=== PATIENT | female | born 1990 | race African-American/Black ===

== ENCOUNTER 2018-03-05 12:05 | Emergency (ER) | payer SELFPAY ==
[~2018-03-05] VITALS: Ht 170.2 cm; Wt 98.0 kg
[2018-03-05] MEDS ORDERED: BENZ100C PO (13:36)
[2018-03-05] MEDS ORDERED: SULF1TAB24 PO (13:36)
--- NOTE | 2018-03-05 13:38 | PHYS DOC ---
Past History Past Medical History: No Pertinent History Past Surgical History: Smoking: Non-smoker Alcohol Use: None Drug Use: None Adult General Chief Complaint Chief Complaint: chest pain with cough [facility] 27-year-old female patient states she has had cough for 3 weeks with intermittent episodes of sputum and nasal congestion. Patient states she has some cough this morning and today while she was at 45th pain in the epigastric area but moved to her chest and then to her back last about an hour and resolved at arrival to ER. Rated her pain 8/10 and denies any pain at time of evaluation. Patient denies fever and chills, shortness of breath, palpitation, nausea and vomiting, . Patient had sick contacts at home. Review of Systems Review of Systems Constitutional: Denies fever or chills [] Eyes: Denies change in visual acuity, redness, or eye pain [] HENT: Reports nasal congestion or sore throat Respiratory:Reports cough Cardiovascular: No additional information not addressed in HPI [] GI: Denies abdominal pain, nausea, vomiting, bloody stools or diarrhea [] : Denies dysuria or hematuria [] Musculoskeletal: Denies back pain or joint pain [] Integument: Denies rash or skin lesions [] Neurologic: Denies headache, focal weakness or sensory changes [] Endocrine: Denies polyuria or polydipsia [] All other systems were reviewed and found to be within normal limits, except as documented in this note. Allergies Allergies Allergies Coded Allergies Type Severity Reaction Last Updated Verified No Known Drug Allergies 08/04/16 No Physical Exam Physical Exam Constitutional: Well developed, well nourished, no acute distress, non-toxic appearance. [] HENT: Normocephalic, atraumatic, bilateral external ears normal, oropharynx moist, no oral exudates, nose normal. [] Eyes: PERRLA, EOMI, conjunctiva normal, no discharge. [] Neck: Normal range of motion, no tenderness, supple, no stridor. [] Cardiovascular:Heart rate regular rhythm, no murmur [] Lungs & Thorax: Bilateral breath sounds clear to auscultation [] Abdomen: Bowel sounds normal, soft, no tenderness, no masses, no pulsatile masses. [] Skin: Warm, dry, no erythema, no rash. [] Back: No tenderness, no CVA tenderness. [] Extremities: No tenderness, no cyanosis, no clubbing, ROM intact, no edema. [] Neurologic: Alert and oriented X 3, normal motor function, normal sensory function, no focal deficits noted. [] Psychologic: Anxious, judgement normal, mood normal. [] Current Patient Data Vital Signs Vital Signs Date Time Temp Pulse Resp B/P (MAP) Pulse Ox O2 Delivery O2 Flow Rate FiO2 03/05/18 12:21 98.6 84 18 100 Room Air EKG EKG [] Radiology/Procedures Radiology/Procedures [] Course & Med Decision Making Course & Med Decision Making discharge: I've spoken with the patient and/or caregivers. I've explained the patient's condition, diagnosis and treatment plan based on information available to me at this time. I've answered the patient's and/or caregivers questions and addressed any concerns. The patient and/or caregivers have a good understanding the patient's diagnosis, condition and treatment plan as can be expected at this point. Vital signs have been stabilized. The patient's condition is stable for discharge from the emergency department. The patient will pursue further outpatient evaluation with her primary care provider or other designated consulting physician as outlined in the discharge instructions. Patient and/or caregivers are agreeable to this plan of care and follow-up instructions have been explained in detail. The patient and/or caregivers have received these instructions in written format and expressed understanding of these discharge instructions. The patient and her caregivers are aware that if any significant change in condition or worsening of symptoms should prompt him to immediately return to this of the closest emergency department. If an emergent department is not readily available I would encourage him to call 911. José Miguel Disclaimer Dragon Disclaimer This electronic medical record was generated, in whole or in part, using a voice recognition dictation system. Departure Departure: Impression: Primary Impression: Upper respiratory infection Additional Impression: Musculoskeletal chest pain Disposition: HOME, SELF-CARE (At 1334) Condition: STABLE Referrals: PCP,NO (PCP) Patient Instructions: Musculoskeletal Pain, Upper Respiratory Infection, Adult Additional Instructions: Drink plenty of liquids Follow-up with your primary care physician in 3-5 days Return to ER if not getting better Scripts Sulfamethoxazole/Trimethoprim (BACTRIM DS TABLET) 1 Each Tablet 1 TAB PO BID, #14 TAB Prov: FÉLIX ESPINAL MD 5/3/18 Benzonatate (TESSALON PERLE) 100 Mg Capsule 1 CAP PO TID, #30 CAP Prov: FÉLIX ESPINAL MD 03/05/18 Problem Qualifiers FÉLIX ESPINAL MD March 05, 2018 13:38
[2018-03-05 13:58] VITALS: BP 132/84
== END 2018-03-05 16:10 | disposition home or self-care (01) ==
LOC: ER 14:50
DX: J06.9 Acute upper respiratory infection, unspecified (principal); R07.89 Other chest pain
CPT/HCPCS: 99283

== ENCOUNTER 2018-03-19 08:42 | Emergency (ER) | payer SELFPAY ==
[~2018-03-19] VITALS: Ht 149.9 cm; Wt 96.2 kg
[~2018-03-19 08:42] MED LIST: BENZ100C PO; SULF1TAB24 PO
[2018-03-19 08:54] VITALS: BP 149/89
--- NOTE | 2018-03-19 09:08 | PHYS DOC ---
Past History Past Medical History: Other Past Surgical History: Smoking: Non-smoker Alcohol Use: None Drug Use: None Adult General Chief Complaint Chief Complaint: SKIN PROBLEM HPI HPI 27-year-old female patient with multiple dental examination states she to right and new lipstick yesterday for a short time and then later on developed itching and rash in her face and trunk without swelling of her lips. Patient states she had more patchy rash and itching this morning with swelling of her lips and face and feeling itching in her throat without shortness of breath and cough. She took 3/4 Benadryl improvement of her condition. She denies fever and chills , nausea and vomiting, chest pain and palpitation. Review of Systems Review of Systems Constitutional: Denies fever or chills [] Eyes: Denies change in visual acuity, redness, or eye pain [] HENT: Denies nasal congestion or sore throat [] Respiratory: Denies cough or shortness of breath [] Cardiovascular: No additional information not addressed in HPI [] GI: Denies abdominal pain, nausea, vomiting, bloody stools or diarrhea [] : Denies dysuria or hematuria [] Musculoskeletal: Denies back pain or joint pain [] Integument: Reports rash and itching Neurologic: Denies headache, focal weakness or sensory changes [] Endocrine: Denies polyuria or polydipsia [] All other systems were reviewed and found to be within normal limits, except as documented in this note. Allergies Allergies Allergies Coded Allergies Type Severity Reaction Last Updated Verified acetaminophen Allergy Intermediate 03/05/18 Yes amoxicillin Allergy Intermediate 03/05/18 Yes morphine Allergy Intermediate 03/05/18 Yes penicillin G Allergy Intermediate 03/05/18 Yes propoxyphene Allergy Intermediate 03/05/18 Yes Physical Exam Physical Exam Constitutional: Well developed, well nourished, moderate distress, non-toxic appearance. [] HENT: Normocephalic, atraumatic, bilateral external ears normal, oropharynx moist, no oral exudates, nose normal, upper lip edema, no facial rash or edema. [] Eyes: PERRLA, EOMI, conjunctiva normal, no discharge. [] Neck: Normal range of motion, no tenderness, supple, no stridor. [] Cardiovascular:Heart rate regular rhythm, no murmur [] Lungs & Thorax: Bilateral breath sounds clear to auscultation [] Abdomen: Bowel sounds normal, soft, no tenderness, no masses, no pulsatile masses. [] Skin: Warm, dry, no erythema, few area of patchy rash in upper back and abdominal wall[] Back: No tenderness, no CVA tenderness. [] Extremities: No tenderness, no cyanosis, no clubbing, ROM intact, no edema. [] Neurologic: Alert and oriented X 3, normal motor function, normal sensory function, no focal deficits noted. [] Psychologic: Affect normal, judgement normal, mood normal. [] Current Patient Data Vital Signs Vital Signs Date Time Temp Pulse Resp B/P (MAP) Pulse Ox O2 Delivery O2 Flow Rate FiO2 03/19/18 08:54 98.1 120 20 98 Room Air EKG EKG [] Radiology/Procedures Radiology/Procedures [] Course & Med Decision Making Course & Med Decision Making Evaluation of patient in ER showed 27-year-old female patient with rash after using a new makeup. Patient treated with Solu-Medrol and Benadryl and Pepcid in ER and felt better. Plan to discharge patient home with diagnose of allergic rash and prescription of drug dose pack and Pepcid and [id number] Benadryl. Dragon Disclaimer Dragon Disclaimer This electronic medical record was generated, in whole or in part, using a voice recognition dictation system. Departure Departure: Impression: Primary Impression: Allergic reaction Disposition: 01 HOME, SELF-CARE (at 0935) Condition: IMPROVED Referrals: PCP,FARIBA (PCP) Patient Instructions: Rash Additional Instructions: Drink plenty of liquids Follow-up with your primary care physician in 3-5 days Return to ER if not getting better Scripts Famotidine (PEPCID) 20 Mg Tablet 1 TAB PO BID, #14 TAB 3 Refills Prov: FÉLIX ESPINAL MD 03/19/18 Methylprednisolone (MEDROL) 4 Mg Tab.ds.pk 1 PKG PO UD, #1 PKG Prov: FÉLIX ESPINAL MD 03/19/18 FÉLIX ESPINAL MD March 19, 2018 09:08
[2018-03-19] MEDS ORDERED: methylPREDNISolone SOD SUCC PF 125 MG/2 ML VIAL. IM ONE (09:30)
[2018-03-19] MEDS ORDERED: diphenhydrAMINE 50 MG/ML VIAL IM ONE (09:30)
[2018-03-19] MEDS ORDERED: FAMOTIDINE 20 MG TABLET PO ONE (09:30)
[2018-03-19] MEDS ORDERED: FAMO-63 PO (09:35)
[2018-03-19] MEDS ORDERED: METH4TAB2 PO (09:35)
== END 2018-03-19 09:40 | disposition home or self-care (01) ==
LOC: ER 08:42
DX: T78.49XA Other allergy, initial encounter (principal); Z88.6 Allergy status to analgesic agent; Z88.1 Allergy status to other antibiotic agents; Z88.5 Allergy status to narcotic agent; Z88.0 Allergy status to penicillin; Z88.8 Allergy status to other drugs, medicaments and biological substances; X58.XXXA Exposure to other specified factors, initial encounter
CPT/HCPCS: 96372; 99284; J1200; J2930

== ENCOUNTER 2021-05-13 13:42 | Observation (INO) | payer BC ==
[~2021-05-13] VITALS: Ht 149.9 cm; Wt 110.2 kg
[~2021-05-13 13:42] MED LIST changes: +FAMO-63 PO; +METH4TAB2 PO
[2021-05-13] MEDS ORDERED: KETOROLAC 15 MG/ML VIAL. IVP ONE (14:00)
[2021-05-13] MEDS ORDERED: IV NORMAL SALINE 1,000ML 1,000 ML IV ONE (14:00)
[2021-05-13] MEDS ORDERED: PROCHLORPERAZINE 10 MG/2 ML VIAL. IV ONE (15:00)
[2021-05-13] MEDS ORDERED: diphenhydrAMINE 50 MG/ML VIAL IVP ONE (15:00)
[2021-05-13 15:12] LABS: BASO % 0 % (0-3); EOS # 0.1 x10^3/uL (0.0-0.7); EOS % 1 % (0-3); HEMATOCRIT 40.7 % (36.0-47.0); HEMOGLOBIN 13.7 g/dL (12.0-15.5); LYMPH # 1.1 x10^3/uL (1.0-4.8); LYMPH % 16 % (24-48); MEAN CORPUSCULAR HEMOGLOBIN 29 pg (25-35); MEAN CORPUSCULAR HGB CONC 34 g/dL (31-37); MEAN CORPUSCULAR VOLUME 85 fL (79-100); MONO # 0.8 x10^3/uL (0.0-1.1); MONO % 11 % (0-9); NEUT # 5.1 x10^3uL (1.8-7.7); NEUT % 72 % (31-73); PLATELET COUNT 261 x10^3/uL (140-400); RED BLOOD COUNT 4.77 x10^6/uL (3.50-5.40); RED CELL DISTRIBUTION WIDTH 15.1 % (11.5-14.5); WHITE BLOOD COUNT 7.1 x10^3/uL (4.0-11.0)
[2021-05-13 15:18] LABS: CALCIUM 9.3 mg/dL (8.5-10.1); CREATININE 0.8 mg/dL (0.6-1.0); GFR 103.3; POTASSIUM 4.4 mmol/L (3.5-5.1)
[2021-05-13 15:24] LABS: ALBUMIN 3.7 g/dL (3.4-5.0); ALBUMIN/GLOBULIN RATIO 0.7 (1.0-1.7); TOTAL BILIRUBIN 0.6 mg/dL (0.2-1.0); TOTAL PROTEIN 8.8 g/dL (6.4-8.2)
--- NOTE | 2021-05-13 15:48 | RAD ---
Exam Date: 05/13/2021 3:[address] HEAD/BRAIN WO Indication: Reason: headache / Spl. Instructions: / History: . TECHNIQUE: Head CT was performed without intravenous contrast. One or more of the following dose re duction techniques were utilized: *Automated exposure control (AEC) *Adjustment of mA and/or kV according to patient size *Use of iterative reconstruction technique *CT scan done according to ALARA, or ALARA/IMAGE GENTLY FINDINGS: The ventricles and sulci are normal for the patient's stated age. There is no evidence of acute int racranial hemorrhage, extra-axial collection, mass effect, midline shift, or acute territorial infarc t. No lesion of the skull base or the calvarium is seen. The visualized paranasal sinuses, mastoid ai r cells and orbits are normal in appearance. IMPRESSION: No evidence for acute intracranial abnormality. Electronically signed by: Jerry Voss MD (05/13/2021 3:46 PM) [facility]
[2021-05-13 16:57] LABS: SEDIMENTATION RATE 17 (0-25)
--- NOTE | 2021-05-13 17:06 | PHYS DOC ---
Past History Past Medical History: Other Past Surgical History: Smoking: Non-smoker Alcohol Use: None Drug Use: None General Adult EDM: Chief Complaint: POST-OP PROBLEM HPI: HPI: 22-year-old -Gabones[place] obese female past medical history of chronic migraine headaches, followed with Dr. Meehan [facility], presents to ED with biological mother, (patient consents to his/her/their knowledge and involvement in pts' medical care), complaints of posterior headache. No relief with darvocet, ibuprofen and opiods. Denies any blunt head trauma. Reports she is not sexually active and is having routine menses. Denies associated blurry vision, sensorimotor deficits. Review of Systems: Review of Systems: Constitutional: Denies fever or chills Eyes: Denies change in visual acuity HENT: Denies nasal congestion or sore throat Respiratory: Denies cough or shortness of breath Cardiovascular: Denies chest pain or edema GI: Denies abdominal pain, nausea, vomiting, bloody stools or diarrhea : Denies dysuria Musculoskeletal: Denies back pain or joint pain Integument: Denies rash Neurologic: Denies headache, focal weakness or sensory changes Endocrine: Denies polyuria or polydipsia Lymphatic: Denies swollen glands Psychiatric: Denies depression or anxiety Current Medications: Current Meds: Current Medications Medications (Trade) Dose Ordered Sig/Leidy Start Time Stop Time Status Last Admin Dose Admin Diphenhydramine HCl (Benadryl) 25 mg 1X ONCE 05/13/21 15:00 05/13/21 15:01 DC 05/13/21 15:16 25 MG Ketorolac Tromethamine (Toradol 15mg Vial) 15 mg 1X ONCE 05/13/21 14:00 05/13/21 14:12 DC Prochlorperazine Edisylate (Compazine) 10 mg 1X ONCE 05/13/21 15:00 05/13/21 15:01 DC 05/13/21 15:15 10 MG Sodium Chloride 1,000 ml @ 1,000 mls/hr 1X ONCE 05/13/21 14:00 05/13/21 14:59 DC 05/13/21 15:15 1,000 MLS/HR Allergies: Allergies: Allergies Coded Allergies Type Severity Reaction Last Updated Verified acetaminophen Allergy Intermediate 03/05/18 Yes amoxicillin Allergy Intermediate 03/05/18 Yes morphine Allergy Intermediate 03/05/18 Yes penicillin G Allergy Intermediate 03/05/18 Yes propoxyphene Allergy Intermediate 03/05/18 Yes Physical Exam: PE: Constitutional: Well developed, well nourished, no acute distress, non-toxic appearance. [] HENT: Normocephalic, atraumatic, bilateral external ears normal, oropharynx moist, no oral exudates, nose normal. [] Eyes: PERRLA, EOMI, conjunctiva normal, no discharge. [] Neck: Normal range of motion, no tenderness, supple, no stridor. [] Cardiovascular:Heart rate regular rhythm, no murmur [] Lungs & Thorax: Bilateral breath sounds clear to auscultation [] Abdomen: Bowel sounds normal, soft, no tenderness, no masses, no pulsatile masses. [] Skin: Warm, dry, no erythema, no rash. [] Back: No tenderness, no CVA tenderness. [] Extremities: No tenderness, no cyanosis, no clubbing, ROM intact, no edema. [] Neurologic: Alert and oriented X 3, normal motor function, normal sensory function, no focal deficits noted. [] Psychologic: Affect normal, judgement normal, mood normal. [] Current Patient Data: Labs: Laboratory Tests Test 05/13/21 14:54 White Blood Count 7.1 x10^3/uL (4.0-11.0) Red Blood Count 4.77 x10^6/uL (3.50-5.40) Hemoglobin 13.7 g/dL (12.0-15.5) Hematocrit 40.7 % (36.0-47.0) Mean Corpuscular Volume 85 fL (79-100) Mean Corpuscular Hemoglobin 29 pg (25-35) Mean Corpuscular Hemoglobin Concent 34 g/dL (31-37) Red Cell Distribution Width 15.1 % (11.5-14.5) H Platelet Count 261 x10^3/uL (140-400) Neutrophils (%) (Auto) 72 % (31-73) Lymphocytes (%) (Auto) 16 % (24-48) L Monocytes (%) (Auto) 11 % (0-9) H Eosinophils (%) (Auto) 1 % (0-3) Basophils (%) (Auto) 0 % (0-3) Neutrophils # (Auto) 5.1 x10^3uL (1.8-7.7) Lymphocytes # (Auto) 1.1 x10^3/uL (1.0-4.8) Monocytes # (Auto) 0.8 x10^3/uL (0.0-1.1) Eosinophils # (Auto) 0.1 x10^3/uL (0.0-0.7) Basophils # (Auto) 0.0 x10^3/uL (0.0-0.2) Erythrocyte Sedimentation Rate 17 (0-25) Sodium Level 141 mmol/L (136-145) Potassium Level 4.4 mmol/L (3.5-5.1) Chloride Level 104 mmol/L (98-107) Carbon Dioxide Level 25 mmol/L (21-32) Anion Gap 12 (6-14) Blood Urea Nitrogen 9 mg/dL (7-20) Creatinine 0.8 mg/dL (0.6-1.0) Estimated GFR (Cockcroft-Gault) 103.3 BUN/Creatinine Ratio 11 (6-20) Glucose Level 86 mg/dL (70-99) Calcium Level 9.3 mg/dL (8.5-10.1) Total Bilirubin 0.6 mg/dL (0.2-1.0) Aspartate Amino Transferase (AST) 30 U/L (15-37) Alanine Aminotransferase (ALT) 39 U/L (14-59) Alkaline Phosphatase 68 U/L (46-116) Total Protein 8.8 g/dL (6.4-8.2) H Albumin 3.7 g/dL (3.4-5.0) Albumin/Globulin Ratio 0.7 (1.0-1.7) L Vital Signs: Vital Signs Date Time Temp Pulse Resp B/P (MAP) Pulse Ox O2 Delivery O2 Flow Rate FiO2 05/13/21 13:42 99.0 78 22 130/79 100 Room Air EKG: EKG: [] Radiology/Procedures: Radiology/Procedures: IMAGING REPORT Signed PATIENT: LUZ YANCEY ACCOUNT: [id number] : 1990 LOCATION: ER AGE: 30 SEX: F EXAM STATUS: REG ER ORD. PHYSICIAN: OSMANY OROZCO DO REASON: headache PROCEDURE: CT HEAD WO CONTRAST Exam Date: 05/13/2021 3:[address] HEAD/BRAIN WO Indication: Reason: headache / Spl. Instructions: / History: . TECHNIQUE: Head CT was performed without intravenous contrast. One or more of the following dose reduction techniques were utilized: *Automated exposure control (AEC) *Adjustment of mA and/or kV according to patient size *Use of iterative reconstruction technique *CT scan done according to ALARA, or ALARA/IMAGE GENTLY FINDINGS: The ventricles and sulci are normal for the patient's stated age. There is no evidence of acute intracranial hemorrhage, extra-axial collection, mass effect, midline shift, or acute territorial infarct. No lesion of the skull base or the calvarium is seen. The visualized paranasal sinuses, mastoid air cells and orbits are normal in appearance. IMPRESSION: No evidence for acute intracranial abnormality. Electronically signed by: Ameena Voss MD (05/13/2021 3:46 PM) [facility] DICTATED AND SIGNED BY: AMEENA VOSS MD DATE: 05/13/21 1539 CC: PCP,NO; OSMANY OROZCO DO ~MTH0 0 Heart Score: C/O Chest Pain: No Risk Factors: Risk Factors: DM, Current or recent (<one month) smoker, HTN, HLP, family history of CAD, obesity. Risk Scores: Score 0 - 3: 2.5% MACE over next 6 weeks - Discharge Home Score 4 - 6: 20.3% MACE over next 6 weeks - Admit for Clinical Observation Score 7 - 10: 72.7% MACE over next 6 weeks - Early Invasive Strategies Course & Med Decision Making: Course & Med Decision Making Pertinent Labs and Imaging studies reviewed. (See chart for details) Concern for persistent, intermittent, waxing waning headache, 2 days after lumb ar puncture with blood patch. Benign intracranial hypertension? Patient's pain improved with IV medications but states anytime she moves that headache worsens. Will admit for further analgesia, further medical management and neurology consultation. Patient stable at time of admission agrees to this plan. I have spoken with the patient and/or caregivers. I have explained the rashaad howard's condition, diagnosis and treatment plan based on the information available to me at this time. I have answered the patient's and/or caregivers questions and answered any concerns. The patient and/or caregivers have as good an understanding of the patient's diagnosis, condition and treatment plan as can be expected at this point. The patient has been stabilized within the capability of the emergency department. The patient will be transported for further care and management or will be moved to an observation or inpatient service. I have communicated with the staff or medical practitioner taking over this patient's care. Dragon Disclaimer: Dragon Disclaimer: This electronic medical record was generated, in whole or in part, using a voice recognition dictation system. Departure Departure: Impression: Primary Impression: Headache Disposition: ADMITTED INPATIENT Admitting Physician: Lalo Carter Condition: STABLE Referrals: PCPFARIBA (PCP) OSMANY OROZCO DO May 13, 2021 17:06
[2021-05-13] MEDS ORDERED: HALOPERIDOL LACT 5 MG/ML VIAL. ONE (17:26)
[2021-05-13] MEDS ORDERED: HALOPERIDOL LACT 5 MG/ML VIAL. IVP ONE (17:30)
[2021-05-13] MEDS ORDERED: RIZA10TA7 PO (18:30)
[2021-05-13] MEDS ORDERED: SUMA50TA4 PO (18:30)
[2021-05-13] MEDS ORDERED: HYDR200T5 PO (18:30)
[2021-05-13] MEDS ORDERED: ESCI10TA90 PO (18:30)
[2021-05-13] MEDS ORDERED: TOPI25TA7 PO (18:30)
[2021-05-13 18:38] VITALS: BP 128/79
[2021-05-13] MEDS: HYDROXYCHLOROQUINE 200 MG TABLET PO SCH (21:00)
[2021-05-13] MEDS ORDERED: IBUP-1818 PO (21:00)
[2021-05-13] MEDS ORDERED: RIME75TA PO (21:00)
[2021-05-13] MEDS ORDERED: RIMEGEPANT SULFATE 75 MG PO PRN (21:00)
[2021-05-13] MEDS ORDERED: HYDROmorphone 2 MG TABLET PO PRN (21:15)
[2021-05-13] MEDS ORDERED: ONDANSETRON PF 4 MG/2 ML VIAL. IVP PRN (21:15)
[2021-05-13] MEDS ORDERED: SUMAtriptan SUCCINATE 50 MG TABLET PO PRN (21:30)
--- NOTE | 2021-05-13 21:58 | NUR ---
The patient, LUZ YANCEY, 30 y/o, F admitted by FELISHA NGUYEN MD, was given written information regarding hospital policies, unit procedures and contact persons. Valuables were checked and vital signs obtained. PT had a lumbar puncture performed on 05/11/21. PT has had a headache ongoing and progressing since that time. Reviewed with PT her PMH, PSH, SH, FH and medications. PT brought 3 medications from home, placed in bag in med room. PT oriented to unit.
--- NOTE | 2021-05-13 22:03 | NUR ---
Paged Dr. Mabry for consult this pm. No return call received. Will advise ongoing am nurse for followup page/phone call for consult.
[2021-05-13 22:55] VITALS: BP 121/79
[2021-05-14 06:09] VITALS: BP 128/81
[2021-05-14] MEDS: HYDROXYCHLOROQUINE 200 MG TABLET PO SCH (09:49)
[2021-05-14 10:06] VITALS: BP 131/84
--- NOTE | 2021-05-14 11:12 | NUR ---
PATIENT IS DISCHARGED HOME, DISCHARGE INSTRUCTIONS AND MEDS REVIEWED, PATIENT VERBALIZED UNDERSTANDING. PATIENT LEFT ROOM 117 VIA W/C ACCOMP BY STAFF. PATIENT TAKEN HOME BY MOTHER VIA PERSONAL VEHICLE.
--- NOTE | 2021-05-14 12:00 | HP ---
ATTENDING PHYSICIAN: Dr. Carter. CHIEF COMPLAINT: Headache. HISTORY OF PRESENT ILLNESS: The patient is a 30-year-old female with severe intractable headache, longstanding history of migraines. She has had a recent spinal tap with a blood patch. Dr. Meehan had seen her at [facility]. She now has severe intractable pain with photophobia, headache, refractory to outpatient care. She was prescribed Darvocet, ibuprofen, other opioids. She denies any recent blunt trauma. She is having routine menses. She remains sexually active. She is under a lot of stress at work and school. PAST MEDICAL HISTORY: Significant for her . She is going to school online for special education. She has been hampered by the recent coronavirus issues. She has had a previous . She has a teenage daughter. CT of the head showed no acute trauma or bleeding. ALLERGIES: SHE HAS ALLERGIES TO TYLENOL, AMOXICILLIN, MORPHINE, PENICILLIN AND DARVOCET, EXACT REACTION IS UNCLEAR. CURRENT MEDICATIONS: Include hydroxychloroquine, ibuprofen. Nurtec ODT and rizatriptan for migraine. SOCIAL HISTORY: She is a nonsmoker, nondrinker. FAMILY HISTORY: Noncontributory. REVIEW OF SYSTEMS: Significant for the stress at work and home. She has photophobia, some nausea, no vomiting. All other systems reviewed and turned to be negative. PHYSICAL EXAMINATION: GENERAL: When I saw her, this is a pleasant young female. INITIAL VITAL SIGNS: Show blood pressure of 121/79, pulse is regular at 80 per minute. She was afebrile, oxygen saturation 99% on room air. HEENT: Head is without trauma. Pupils are reactive. No nystagmus. NECK: Supple, multiple trigger points identified. It is painful to minimal palpation. LUNGS: Otherwise clear. CARDIOVASCULAR: Showed distant heart tones. No gallops. ABDOMEN: Soft. EXTREMITIES: Without edema. NEUROLOGIC: Functionally flat affect. Speech is fluent. She has no focal deficits. SKIN: Warm and dry. PERTINENT LABORATORY AND X-RAY STUDIES: In the ED, her hemoglobin is normal at 13.7 grams per deciliter with a white count of 7100. Electrolytes, BUN and creatinine, blood sugar, liver panel all within normal range. The obligatory CT of the head once again showed no acute pathology, no evidence of active intracranial abnormalities. ASSESSMENT: 1. A 30-year-old female with intractable headache. I believe she has had a history of migraine, but these are more musculoskeletal in nature. 2. Underlying depression with stress. 3. Morbid obesity. Her body mass index is 49. PLAN: 1. Observation status. 2. Pain control. 3. Diet as tolerated. 4. Formal neurology consultation in the morning. LEAH/CHARLIE/ROLAND DR: Doc TID: [id number] CC:
--- NOTE | 2021-05-14 15:23 | DS ---
DATE OF DISCHARGE: 05/14/2021 ATTENDING PHYSICIAN: Dr. Carter. FINAL DISCHARGE DIAGNOSES: 1. Intractable headache. 2. Musculoskeletal tension headache. 3. History of migraines. 4. Morbid obesity. HISTORY AND PHYSICAL: The patient is a 30-year-old female with intractable headaches. She has seen Dr. Miranda, recent workup including a spinal tap and a blood patch. It is quite severe nauseated. There is a lot of musculoskeletal component. She was admitted for pain control. PHYSICAL EXAMINATION: Please see the dictated note. PERTINENT LABORATORY AND X-RAY STUDIES: Normal CBC: Hemoglobin 13.7 g, white count 7100. Electrolytes, BUN and creatinine all within normal range. CT of the head showed no acute changes. COURSE IN THE HOSPITAL: The patient was admitted overnight. She was given intravenous pain meds with some relief. We kept the lights down. She had photophobia. By the second hospital day, we had a formal neurologic evaluation. Dr. Mabry saw her and his recommendation is on the chart. He also felt this is localized and .It appears to be musculoskeletal and stress related. By the second hospital day, her nausea had improved and she wanted to go home. I felt this is reasonable. I therefore wrote her a script for Percocet 10/325 one every 6 hours p.r.n. pain. I recommend a soft cervical collar and I showed the patient some tricks and management to manage tension headaches. Other home meds are unchanged. She was discharged then from our hospital in stable condition with explicit drug and followup care. She will follow up with Suri Hudson as scheduled. LEAH/KAREN DR: Doc TID: [id number] CC: OPAL GILMORE
--- NOTE | 2021-05-14 21:55 | CONS ---
NEURO CONSULTATION REFERRING PHYSICIAN: Dr. Carter. REASON FOR CONSULTATION: Severe headaches. HISTORY OF PRESENT ILLNESS: This is a 30-year-old right-handed -[place] female who has had longstanding history of migraine headaches since age of 17, was admitted through Emergency Room on 05/13/2021 on account of severe global headaches associated with nausea, vomiting, photophobia and phonophobia. The patient has been under care of a neurologist at [facility] for severe migraine headaches and ocular migraine headaches. She stated she had extensive workup including brain MRI, head CT scan and EEG, which revealed no significant abnormalities. The patient has been treated for acute and daily headaches since 01/2021. Three days ago, she was evaluated in the Emergency Room at [facility] when she presented with severe occipital headaches associated with nausea, vomiting, photophobia and phonophobia. Spinal tap was performed and revealed opening pressure of 25 mmHg and closing pressure of 15 mmHg. Some spinal fluid was removed and revealed no significant relief of her headaches. Currently, the patient stated her headache is 9/10 on a pain scale; however, she complains of severe back pain due to the spinal tap which required a blood patch, but she continues to have a severe headache on changing her body positions from lying to sitting, associated with nausea, vomiting and severe lower back pain. The patient has been on Dilaudid. She is also taking Plaquenil for possible fibromyalgia or other joint disease. She was seen by a vaudeville actor in the past and was placed on Plaquenil, which relieved her back pain. She has longstanding history of fibromyalgia as well. 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 PAST MEDICAL HISTORY: Significant for chronic migraine headaches and sometimes daily headaches, fibromyalgia, anxiety. PAST SURGICAL HISTORY: Positive for x1. FAMILY HISTORY: Noncontributory. SOCIAL HISTORY: The patient is single. She has one child. She denies smoking, alcohol drinking or illicit drug use. 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 CURRENT MEDICATIONS: Sumatriptan 100 mg q.2 hours p.r.n. for severe migraine headaches, Dilaudid 1 mg q.6 hours p.r.n. for severe pain, Zofran 4 mg q.4 hours p.r.n. for nausea, Nurtec 75 mg p.r.n. for severe migraine headaches, Plaquenil 20 mg b.i.d. ALLERGIES: TYLENOL, AMOXICILLIN, MORPHINE, ____ PENICILLIN G, AND PROPOXYPHENE. REVIEW OF SYSTEMS: A 10-point review of system was performed as mentioned above in the history of present illness, otherwise unremarkable. PHYSICAL EXAMINATION: GENERAL: Obese female in no acute distress. She weighs 110.2 kilos. VITAL SIGNS: Blood pressure 128/81, respiratory rate 18, pulse is 74, temperature 98.5, oxygen saturation 95% on room air. HEENT: Normocephalic and atraumatic, otherwise unremarkable. NECK: Supple, negative for carotid bruit, lymphadenopathy or thyromegaly. LUNGS: Clear to A and P. CARDIOVASCULAR: Regular rhythm. Normal S1 and S2. ABDOMEN: Soft. Bowel sounds positive. EXTREMITIES: Negative for cyanosis, clubbing or pedal edema. NEUROLOGIC: Mental status: The patient is alert and oriented x3. Speech is fluent. There is no language dysfunction. Memory, judgment and abstracting thinkings are normal. The patient denies hallucination or delusion. Cranial nerves: Visual sagastume are full. The pupils are reactive to light and accommodation. Extraocular movements are intact. There is no nystagmus. There is no facial motor or sensory deficits. Hearing is intact bilaterally. The palate is elevated symmetrically. Sternocleidomastoid muscles are powerful bilaterally. The patient shrugs her shoulders symmetrically, protrudes her tongue in the midline without fasciculation or atrophy. Motor examination: No focal muscle bulk wasting. The tone is normal. The strength is 5/5 throughout. Sensory examination revealed normal pinprick, light touch, vibratory and position senses. Deep tendon reflexes were symmetric and hypoactive with absent Achilles responses. Gait not tested as the patient has severe low back pain aggravated by changing her body positions. DIAGNOSTIC STUDIES: A nonenhanced head CT scan revealed no evidence of acute intracranial process. LABORATORY DATA: CBC revealed blood cells of 7.1000, hemoglobin 13.7, hematocrit 40.7, platelet count 261,000. Chemistry reveals sodium 141, potassium 4.4, chloride 104, CO2 25, BUN 9, creatinine 0.8, glucose 86. Liver enzymes are normal. ASSESSMENT AND PLAN: 1. Severe global headaches, status post spinal tap, may represent spinal headaches. 2. Chronic and recurrent migraine headaches. 3. Long history of fibromyalgia and possible other rheumatological disorder with good response on Plaquenil. 4. Anxiety and stress may aggravate her current headaches. RECOMMENDATION: 1. Continue with current management initiated by Dr. Carter, for migraines, lumbar puncture and spinal tap headaches. 2. Continue with current home medications for fibromyalgia. 3. Follow up with her neurologist at [facility]. SHELIA/SURY DR: SHELIA/maura TID: [id number]
== END 2021-05-14 11:05 | disposition home or self-care (01) ==
LOC: ER 13:42 → 1 SOUTH 17:31
PROVIDERS: ADMIT Hospitalist; ATTEND Hospitalist
DX: G44.209 Tension-type headache, unspecified, not intractable (principal); E66.01 Morbid (severe) obesity due to excess calories; F32.9 Major depressive disorder, single episode, unspecified; F43.9 Reaction to severe stress, unspecified; F41.9 Anxiety disorder, unspecified; G43.109 Migraine with aura, not intractable, without status migrainosus; M79.7 Fibromyalgia; Z98.891 History of uterine scar from previous surgery; Z68.42 Body mass index [BMI] 45.0-49.9, adult
CPT/HCPCS: 36415; 70450; 80053; 85025; 85651; 96361; 96374; 96375; 99284; G0378; J0780; J1200; J1630; J2405; J7030; G0379

== ENCOUNTER → 2021-06-28 | Outpatient (CLI) | payer BC ==
[~2021-06-28] MED LIST changes: +ESCI10TA90 PO; +HYDR200T5 PO; +IBUP-1742 PO; +RIME75TA PO; +RIZA10TA7 PO; +SUMA50TA4 PO; +TOPI25TA7 PO
--- NOTE | 2021-06-28 12:35 | RAD ---
EXAM: Chest, 2 views. HISTORY: Interstitial lung disease. COMPARISON: None. FINDINGS: 2 views of the chest are obtained. There is no infiltrate, pleural effusion or pneumothorax . The heart is normal in size. IMPRESSION: No acute pulmonary finding. Electronically signed by: Jessica Flores MD (06/28/2021 12:33 PM) [id number]
--- NOTE | 2021-06-28 12:38 | RAD ---
EXAM: Bilateral hands, 2 views; sacroiliac joints, 3 views. HISTORY: Fibromyalgia. COMPARISON: None. FINDINGS: Bilateral hands: 2 views of both hands are obtained. There is no fracture, dislocation or subluxation . The alignment and joint spaces are unremarkable. There is no erosion or suspicious lytic or sclerot ic osseous lesion. Bilateral sacroiliac joints: 3 views of the sacroiliac joints are obtained. There is no fracture, dis location or subluxation. There is no joint space widening. There is no suspicious lytic or sclerotic osseous lesion. IMPRESSION: No acute osseous finding. Electronically signed by: Jessica Flores MD (06/28/2021 12:35 PM) [id number]
== END ==
LOC: RAD 11:42
PROVIDERS: ATTEND Internal Medicine Rheumatology
DX: J84.9 Interstitial pulmonary disease, unspecified (principal); H57.10 Ocular pain, unspecified eye; R20.2 Paresthesia of skin; R76.0 Raised antibody titer; M54.5 Low back pain; M25.59 Pain in other specified joint; M79.7 Fibromyalgia; Z79.899 Other long term (current) drug therapy
CPT/HCPCS: 71046; 72202; 73120-50